=== PATIENT | female | born 1955 | race Caucasian/White ===

== ENCOUNTER 2020-02-16 14:14 | Outpatient (CLI) | payer MEDICARE, SELFPAY ==
[2020-02-16 15:21] LABS: Anion Gap 3 mmol/L (8-16); Blood Urea Nitrogen 11 mg/dL (7-17); Calcium 9.4 mg/dL (8.4-10.2); Carbon Dioxide 34 mmol/L (22-30); Chloride 100 mmol/L (98-107); Estimated Glomerular Filt Rate > 60; Glucose 102 mg/dL (65-105); Potassium 4.5 mmol/L (3.4-5.0); Sodium 137 mmol/L (137-145)
[2020-02-16 15:26] LABS: Alanine Aminotransferase 48 U/L (4-35); Alkaline Phosphatase 106 U/L (38-126); Anion Gap 3 mmol/L (8-16); Aspartate Amino Transferase 33 U/L (14-36); Bilirubin,Total 0.8 mg/dL (0.2-1.3); Blood Urea Nitrogen 11 mg/dL (7-17); Calcium 9.3 mg/dL (8.4-10.2); Carbon Dioxide 33 mmol/L (22-30); Chloride 101 mmol/L (98-107); Cholesterol 208 mg/dL (0-200); Estimated Glomerular Filt Rate > 60; Glucose 102 mg/dL (65-105); Potassium 4.5 mmol/L (3.4-5.0); Sodium 137 mmol/L (137-145); Triglycerides 71 mg/dL (<150)
[2020-02-16 15:32] LABS: LDL Cholesterol Direct 81 mg/dL
[2020-02-16 15:33] LABS: HDL Direct 114 mg/dL
[2020-02-16 16:38] LABS: Vitamin D 25 Hydroxy 22.7 ng/mL
== END 2020-02-16 14:15 | disposition home or self-care (01) ==
LOC: ANHLAB 14:18
PROVIDERS: Nurse Practitioner; PCP Internal Medicine; Visit Provider Surgery
DX: E55.9 Vitamin D deficiency, unspecified (principal); I10 Essential (primary) hypertension; Z13.6 Encounter for screening for cardiovascular disorders; Z79.899 Other long term (current) drug therapy
CPT/HCPCS: 36415; 80048; 80053; 80061; 82306

== ENCOUNTER 2020-06-22 12:55 | Outpatient (CLI) | payer MEDICARE, OTHER, MEDICAID, SELFPAY ==
[2020-06-22 14:30] LABS: Vitamin D 25 Hydroxy 46.2 ng/mL
== END 2020-06-22 12:56 | disposition home or self-care (01) ==
PROVIDERS: PCP Internal Medicine; Visit Provider Nurse Practitioner
DX: E55.9 Vitamin D deficiency, unspecified (principal)
CPT/HCPCS: 36415; 82306